=== PATIENT | male | born 2000 | race African-American/Black ===

== ENCOUNTER 2020-08-12 23:31 | Emergency (ER) | payer MEDICAID ==
[~2020-08-12] VITALS: Ht 188 cm; Wt 75.0 kg
[2020-08-13] MEDS ORDERED: BACITRACIN ZINC OINT UDPKT TOP ONE (00:15)
[2020-08-13] MEDS ORDERED: IBUPROFEN 600MG TABLET PO ONE (00:15)
[2020-08-13] MEDS ORDERED: TETANUS, DIPHTHERIA, PERTUSSIS VAC/PF 0.5ML (>7YR OLD) IM ONE (00:15)
[2020-08-13 01:32] VITALS: BP 122/62
== END 2020-08-13 01:49 | disposition home or self-care (01) ==
LOC: ER 23:31
DX: S60.413A Abrasion of left middle finger, initial encounter (principal); S60.415A Abrasion of left ring finger, initial encounter; S60.512A Abrasion of left hand, initial encounter; W22.01XA Walked into wall, initial encounter; Y93.89 Activity, other specified; Y92.018 Other place in single-family (private) house as the place of occurrence of the external cause
CPT/HCPCS: 73130; 90471; 90715; 99283

== ENCOUNTER 2021-05-09 12:38 | Emergency (ER) | payer MEDICAID ==
[~2021-05-09] VITALS: Ht 185.4 cm; Wt 75.0 kg
[2021-05-09] MEDS ORDERED: METHOCARBAMOL 500MG TABLET PO ONE (14:15)
[2021-05-09] MEDS ORDERED: KETOROLAC 60MG/2ML VIAL IM ONE (14:15)
[2021-05-09 14:29] VITALS: BP 118/54
[2021-05-09] MEDS ORDERED: NAPR-681 MT (15:19)
[2021-05-09] MEDS ORDERED: METH-773 MT (15:19)
== END 2021-05-09 15:38 | disposition home or self-care (01) ==
LOC: ER 12:38
DX: S16.1XXA Strain of muscle, fascia and tendon at neck level, initial encounter (principal); V49.40XA Driver injured in collision with unspecified motor vehicles in traffic accident, initial encounter; Y93.89 Activity, other specified; Y92.410 Unspecified street and highway as the place of occurrence of the external cause
CPT/HCPCS: 96372; 99283; J1885

== ENCOUNTER 2023-08-01 13:11 | Emergency (ER) | payer MEDICAID, OTHER ==
[~2023-08-01] VITALS: Ht 182.9 cm; Wt 77.0 kg
[~2023-08-01 13:11] MED LIST: METH-773 MT; NAPR-681 MT
[2023-08-01 13:18] VITALS: BP 131/74; PULSE 78; RESP 20; TEMP 97.8; O2SAT 100
== END 2023-08-01 18:50 | disposition home or self-care (01) ==
LOC: ER 13:20
DX: S09.93XA Unspecified injury of face, initial encounter (principal); X58.XXXA Exposure to other specified factors, initial encounter; Y93.61 Activity, american tackle football; Y92.89 Other specified places as the place of occurrence of the external cause; Y99.8 Other external cause status
CPT/HCPCS: 99281